=== PATIENT | female | born 1975 | race Hispanic/Latino ===

== ENCOUNTER → 2019-03-11 | Emergency (ER) | payer SELFPAY ==
[~2019-03-11] MED LIST: LORAZEPAM 0.5 MG TABLET ONE
--- OUTSIDE RECORDS SUMMARY | 2019-03-11 23:59 | XMS REPORT ---
:1975 [facility] [place] [address] [place] [address] Care Team Providers Name Role Phone Unavailable Unavailable Unavailable Problems This patient has no known problems. Allergies, Adverse Reactions, Alerts This patient has no known allergies or adverse reactions. Medications This patient has no known medications.
--- OUTSIDE RECORDS SUMMARY | 2019-03-11 23:59 | XMS REPORT | Continuity of Care Document ---
:1975 Author Organization [facility] Address [address] [place] [address] Phone Care Team Providers Name Role Phone Corie Phan Unavailable Unavailable Allergies, Adverse Reactions, Alerts Substance Reaction Status No Known Allergies Active Medications Medication Instructions Dosage Effective Dates Status Comments (start - stop) lisinopril 20 TAKE ONE TABLET BY - Active [Pat Resp=0 mg-hydrochlorothiaz MOUTH DAILY pct;] brandon 25 mg tablet fenofibrate 160 mg take 1 tablet by 160 MG - Active [Pat Resp= 0 tablet oral route every pct;] day atorvastatin 10 mg take 1 tablet by 10 MG - Active [Pat Resp=0 tablet oral route every pct;] day Depakote 500 mg take 3 Tablet by - Active [Pat Resp=0 tablet,delayed oral route once pct;] release every evening quetiapine 100 mg take 1 tablet by 100 MG - Active [Pat Resp=0 tablet oral route every pct;] bedtime Zoloft 100 mg take 1 tablet by 100 MG - Active [Pat Resp=0 tablet oral route every pct;] day atorvastatin 10 mg take 1 tablet by 10 MG - No Longer [Pat Resp=0 tablet oral route every Active pct;] day LISINOPRIL-HCTZ TAKE ONE TABLET BY - No Longer [Pat Resp=0 20-25 MG TAB MOUTH DAILY Active pct;] fenofibrate 160 mg take 1 tablet by 160 MG - No Longer [Pat Resp=0 tablet oral route every Active pct;] day Problems Condition Effective Dates (start - stop) Clinical Status Comments No information Procedures Procedure Date Nominal Fee Established Patient Office Visit-Level Four Results Test Name Date and Time Measure Units Reference Range Abnormal Flag Status Comments No information Advance Directives Directive Yes / No Effective Date File Name No information Encounters Encounter Practice Location Reason(s) Diagnoses Date Provider Providers Description For Visit Copied on Encounter Established [facility] TC depression Zygomatic fracture, Heather Referring Patient Health & [facility] (chief left side, Corie. Provider: Office Wellness, Health & complaint)h sequelaHTNMajor 9 [address] Corie Visit-Level PO Box Wellness yperlipidem depressive disorder, [place] Willard Romero, [address], [place] (chief single episode, [place] [address], complaint)h moderateHyperlipidem [address]way, [place] Sud[place], ypertension iaAlcohol abuse [address], [place] [id number] (chief [facility] complaint)a [facility] [address], tel:[phone] [place] [id number] abuse . [place], [place], (chief tel:[phone]. complaint) [id number] tel:[phone] [facility] TC [facility] & 9 . [address] PO Box Wellness Humph[place] Willard [address], [place] She[place], [place], [place], [address], [id number] [place], tel:[phone] [id number] . tel:[phone] [facility] TC [facility] Referring [facility] & [facility] Provider: ClubLocal, Health & 9 . [address] [facility] PO Box Wellness Humphrey Valadez, [address], [place] [address], [facility], [place] Willard [place], [address], [place] [id number] [facility] , [place], [place], [address], tel:[phone] [place] [id number] . [place], tel:[phone]. [id number] tel:[phone] [facility] Abnormal results of Valadez Referring Health & [facility] liver function [facility] Provider: Wellness, Health & studies 9 . [address] [facility] PO Box Wellness Humph[place] Valadez, [address], [place] [address], ExpHumphrey white [place], [address], [place] [id number] [facility] [address], tel:[phone] [place] [id number] . [place], tel:[phone]. [phone] tel:[phone] [facility] TC Body mass index Valadez Referring Health & [facility] (BMI) 29.0-29.9, 4 Lorena Provider: Wellness, Health & adultAbnormal 9 . [address] [facility] PO Box Wellness results of liver [place] Valadez, [address], [place] function [place] [address], studiesMixed [address], [place], hyperlipidemiaHTN [address], [place] [id number] [place], [place], [address], tel:[phone] [place] [address] . [place], tel:[phone]. [id number] tel:[phone] [facility] TC HTNHyperlipidemiaBod Valadez Referring Health & [facility] y mass index (BMI) 8-201 Lorena Provider: Wellness, Health & 29.0-29.9, 9 . [address] S[facility] PO Box Wellness adultZygomatic [place] Valadez, [address], [place] fracture, left side, [place] [address], sequelaAnxiety [address], [place], depression [address], [place] [id number] [place], [place], [address], tel:[phone] [place] [id number] . [place], tel:[phone]. [phone] tel:[phone] [facility] TC Body mass index Mar-0 Health & [facility] (BMI) 29.0-29.9, 6-201 Wellness, Health & adultHTNUnspecified 9 PO Box Wellness convulsions [address]39, [place], [place], [id number] , tel:+ [phone] [facility] TC Body mass index Feb-2 Health & [facility] (BMI) 29.0-29.9, 1 Wellness, Health & adultEncounter for 9 PO Box Wellness administrative [address], [place], [place], [id number] , tel:+ [phone] [facility] TC Encounter for dental Feb-0 Valdes Referring Health & [facility] exam and cleaning Bang. Provider: Wellness, Health & w/o abnormal 9 [address] Bang PO Box Wellness findings [place] Valdes, [address], [place] [address] Margarita Stat[place] Emmett F [place], [address], [place] [id number] [place], [place], [address], tel:[phone] [place] [id number] . [place], tel:+ [phone]. [phone] tel:[phone] [facility] TC Body mass index Jun- Health & [facility] (BMI) 28.0-28.9, Wellness, Health & adultHTNDepressionAn 9 PO Box Wellness xiety [address], [place], [place], [id number] , tel:[phone] [facility] Gal Encounter for dental Leoncio-0 Valdes Referring Health & [facility] exam and cleaning Bang. Provider: Wellness, Health & w/o abnormal 9 [address] Bang PO Box Wellness findings Humph[place] Valdes, [address], [place] [address] Margarita [place] Emmett F [place], [address], [place] [id number] [place], [place], [address], tel:[phone] [place] [id number] . [place], tel:[phone]. [id number] tel:[phone] [facility] Gal Encounter for dental Dec- Valdes Referring Health & [facility] exam and cleaning Bang. Provider: Wellness, Health & w/o abnormal 8 [address] Bang PO Box Wellness findings Humph[place] Valdes, 9[address], [place] [address] Margarita [place], [place], [address], [place] [id number] [place], [place], [address], tel:[phone] [place] [id number] . [place], tel:+ [phone]. [id number] tel:[phone] [facility] Gal Body mass index Nov-2 Health & [facility] (BMI) 28.0-28.9, 0-201 Wellness, Health & adultZygomatic 8 PO Box Wellness fracture, left side, 939, Nm sequelaGRADY [place], [place], [id number] , tel:[phone] [facility] TC Encounter for dental Sep-2 Health & [facility] exam and cleaning Wellness, Health & w/o abnormal 8 PO Box Wellness findings [address], [place], [place], [id number] , tel:[phone] [facility] TC HTNDepressionBody Sep- Sun Referring Health & [facility] mass index (BMI) Jija. Provider: Wellness, Health & 27.0-27.9, adult 8 [address] Jija PO Box Wellness Humphrey Sun, 939, [facility] [address] [facility], [facility], [address], [place] [id number] [place], [place], [address], tel:+ [phone] [place] [address] . [place], tel:+ [phone]. [phone] tel:[phone] [facility] Gal Unspecified Huey- Health & [facility] convulsionsConjuncti Wellness, Health & vitis 8 PO [address] Wellness [address], [place], [place], [id number] , [place] tel:[phone] [facility] Gal HTNUnspecified October- Health & [facility] convulsionsGeneraliz Wellness, Health & ed anxiety 8 PO Box Wellness disorderDepressionIn 939, Nm irvinradha [place], [place], [id number] , [place] tel:[phone] [facility] TC Encounter for Feb-2 Health & [facility] screening mammogram Wellness, Health & for Ca of 8 PO Box Wellness breastDepressionHTNH 939, [place] yperlipidemiaUnspeci [place], fied convulsions [place], [id number] , [place] tel:[phone] [facility] TC Alcohol use, Feb- Dilma Referring Health & [facility] unspecified with Marcia. Provider: Wellness, Health & alcohol-induced 8 [address] Marcia PO Box Wellness sleep disorderMajor Humph[place] Perera, [address], [place] depressive disorder, [place] [address], single episode, [facility], [place], moderateAcute stress [address], [place] [id number] reactionGeneralized [place] [facility] , [place] anxiety [place], [place], [address], tel:[phone] disorderAdjustment [phone] [place] [id number] disorder with mixed . [place], anxiety and tel:+ [phone]. depressed mood [id number] tel:[phone] [facility] Gal Unspecified Mar-2 Health & [facility] convulsionsEncounter Wellness, Health & for 7 PO Box Wellness screeningDepressionA 939, [place] nxietyHTN [facility] [place], [id number] , [place] tel:+ [phone] [facility] Gal Encounter for Aug-0 Health & [facility] gynecological exam 7- Wellness, Health & 7 PO Box Wellness [address], [place], [place], [id number] , [place] tel:[phone] [facility] TC Unspecified Dec- Vega Referring Health & [facility] convulsions - Juanita. Provider: Wellness, Health & 6 [address] Juanita PO Box Wellness Humph[place] Ferrari, [address], [place] [address], [address], [place], [address], [place] [id number] [place] [facility] , [place], [address], tel:[phone] [place] [id number] . [place], tel:[phone]. [phone] tel:[phone] [facility] Gal HTNHyperlipidemiaUns Dec-0 Vega Referring Health & [facility] pecified 6 Juanita. Provider: Wellness, Health & convulsionsAcute 6 [address] Juanita PO Box Wellness pharyngitisDepressio Humph[place] Ferrari, [address]39, [place] nAnxiety [place] [address] Margarita Staton Emmett F [place], [address], [place] [id number] [place], [place], [address], tel:[phone] [place] [id number] . [place], tel:[phone]. [id number] tel:[phone] [facility] Gal HTNAnemiaHyperlipide Vega Referring Health & [facility] for 8-201 Juanita. Provider: Wellness, Health & immunizationUnspecif 6 [address] Juanita PO Box Wellness ied convulsions Humph[place] Ferrari, [address], [place] [address] [facility], [place], [address], [place] [id number] [place], [place], [address], tel:[phone] [place] [address] . [place], tel:+ [phone]. [id number] tel:[phone] [facility] Gal Unspecified Aug-0 Health & [facility] convulsions 4-201 Wellness, Health & 6 PO Box Wellness [address], [place], [place], [id number] , tel:[phone] [facility] Gal SeizureHTNDepression Jan-0 Health & [facility] Anxiety 3-201 Wellness, Health & 6 PO [address] Wellness [address], [place], [place], [id number] , tel:[phone] Family History Family Member Diagnosis Age At Onset Father Mother Stroke Mother Hypertension Father Hypertension Father Stroke Immunizations Vaccine Date Status Comments influenza, injectable, administered Source: New Immunization Record quadrivalent, (3 years or older) Payers Payer name Insurance type Covered republican ID Authorization(s) No information Social History Type Description Quantity Date Captured Comments Alcohol Use Details beer 6 pk of beer daily Caffeine Use Details No Tobacco Use Status Never smoked tobacco Smoking Status Never smoker Non-Smoking Tobacco : No Details Available : No Details Available 2018 Use Details Sex Female Vital Signs Date / Height Weight BMI Pulse Blood Temperature Respiratory Body Head BMI Pulse Inhaled Time: Rate Pressure Rate Surface Circumference percentile Ox Ox Area 62.00 159.12 29.1 82 108/73 97.8 F 16 /min 97 -2019 in lbs 0 /min mm[Hg] 10:53 kg/m AM eter (2) Chief Complaint And Reason For Visit Most recent encounter only, dated '03/05/2019 10:40'. depression (chief complaint). Description: The patient presents with depressed mood, diminished interest or pleasure and excessive worry but denies anxious/fearful thoughts, difficulty falling asleep, difficulty staying asleep, easily startled, fatigue, hallucinations or thoughts of or suicide. The patient's risk factors include alcoholism. The depression is aggravated by alcohol use. The patient's relieving factors are alcohol and medication (see rx list). The patient denies any nausea, sweating and vomiting. Additional information: keep f/u with [facility] for continued management.hyperlipidemia (chief complaint). Description: Risk factors include obesity, poor diet, sedentary life style and smoking. Pertinent negatives include chest pain, diaphoresis, dyspnea, heartburn , hypoglycemic episodes, nausea and vomiting. Additional information: pt requesting refill of atorvastatin and fenofibrate.hypertension (chief complaint) . Description: The HTN started in 1992. Risk factors include high salt intake , inactive lifestyle and obesity. Pertinent negatives include chest pain, diaphoresis, dyspnea, fatigue, nausea and vomiting. Additional information: pt requesting refill of lisinopril/HCTZalcohol abuse (chief complaint). Description : Pt has been a heavy drinker since age 13. Pt is drinking a 6 pack per day. Pt does have shakes when she doesn't drink. Last intake was this morning.Pt is starting in a rehab facility - residential - on Friday (3 days from now). Pt wants to become sober, but knows she needs help. Reason For Referral Reason For Referral No information Plan Of Treatment Date Type Action Status Goal Lifestyle education regarding diet completed Goal Lifestyle education regarding diet completed Goal Dietary management education, guidance, and completed counseling Goal Dietary management education, guidance, and completed counseling Goal Dietary management education, guidance, and completed counseling Goal Dietary management education, guidance, and completed counseling Goal Dietary management education, guidance, and completed counseling Referral Ordered: ordered Ultrasound (related to Abnormal results of liver function studies) Referral Ordered: ordered Referrals: Ultrasound. Evaluate and treat Referral Ordered: ordered Neurosurgery (related to Zygomatic fracture, left side, sequela) Referral Ordered: ordered Referrals: Neurosurgery. Evaluate and treat Referral Ordered: ordered Referrals: Mammogram-Screening. Diagnostic testing Appointment Sonny Spence BOOKED History Of Present Illness Encounter Date Complaint History Of Present Illness depression The patient presents with depressed mood, diminished interest or pleasure and excessive worry but denies anxious/fearful thoughts, difficulty falling asleep, difficulty staying asleep, easily startled, fatigue, hallucinations or thoughts of or suicide. The patient's risk factors include alcoholism. The depression is aggravated by alcohol use. The patient's relieving factors are alcohol and medication (see rx list). The patient denies any nausea, sweating and vomiting. Additional information: keep f/u with [facility] for continued management. alcohol abuse Pt has been a heavy drinker since age 13. Pt is drinking a 6 pack per day. Pt does have shakes when she doesn't drink. Last intake was this morning.Pt is starting in a rehab facility - residential - on Friday (3 days from now). Pt wants to become sober, but knows she needs help. hypertension The HTN started in 1992. Risk factors include high salt intake, inactive lifestyle and obesity. Pertinent negatives include chest pain, diaphoresis, dyspnea, fatigue, nausea and vomiting. Additional information: pt requesting refill of lisinopril/HCTZ hyperlipidemia Risk factors include obesity, poor diet, sedentary life style and smoking. Pertinent negatives include chest pain, diaphoresis, dyspnea, heartburn, hypoglycemic episodes, nausea and vomiting. Additional information: pt requesting refill of atorvastatin and fenofibrate. Functional Status Date Functional Assessment No information Medications Administered Medication Instructions Dosage Effective Dates (start - stop) Status Comments No information Instructions Date Instruction Additional Information Encouraged pt to complete 30 day Related to Alcohol abuse rehab.Should schedule f/u after to discuss progress and consider [facility] clinic eval. Pt is very interested in this. refill sent as rxlow sodium diet Related to HTN encouraged refilled as rxlow fat diet encouraged Related to Hyperlipidemia keep f/u with [facility], doing well Related to Major depressive disorder, single episode, moderate completed food stamps paperwork and also Related to Zygomatic fracture, note stating unable to workcontinue to left side, sequela work on [facility] application to get into neurosurg Will recheck liver fx test, will also Related to Abnormal results of check hepatitis panelConsider obtaining liver function studies RUQ US if liver enzymes still elevated Will recheck lipid panelAdvise pt that Related to Mixed hyperlipidemia if her TGs are still elevated, will plan to send fenofibrate to [facility] [employer] ($6 w/ membership) - Also discussed risk and consequences of elevated TGs Will increase HCTZ to 25 mg daily, c/w Related to HTN lisinopril 20 mg dailyMonitor BP daily and logF/u in 6 weeks Lifestyle education regarding diet Related to Body mass index ( BMI) 29.0-29.9, adult Giving encouragement to exercise Related to Body mass index (BMI) 29.0-29.9, adult Pt has traumatic injury in 06/16 Related to Zygomatic fracture, Requesting work excuse until she sees left side, sequela neurosurgeryWill renew referral Refilled BP medsWill get labsF/u in 3 Related to HTN months Refilled atorvastatinWill get labs Related to Hyperlipidemia Following up w/ [facility] Related to Anxiety depression Lifestyle education regarding diet Related to Body mass index ( BMI) 29.0-29.9, adult Giving encouragement to exercise Related to Body mass index (BMI) 29.0-29.9, adult controlledcontinue depakote Related to Unspecified convulsions continue medpt informed to get her Related to HTN records from medical records Dietary management education, guidance, Related to Body mass index (BMI) and counseling 29.0-29.9, adult pt informed to see medical records Related to Encounter for administrative examination Dietary management education, guidance, Related to Body mass index (BMI) and counseling 29.0-29.9, adult managed by [facility] meds as Related to Depression prescribedpt will call with the name of the medications.records requested decrease lisinopril/hctzmonitor bp at Related to HTN homediet and exercise Dietary management education, guidance, Related to Body mass index (BMI) and counseling 28.0-28.9, adult schedule with neurosurgeonawaiting Related to Zygomatic fracture, [facility] application decision left side, sequela continue med Related to HTN Dietary management education, guidance, Related to Body mass index (BMI) and counseling 28.0-28.9, adult pt to bring the medication bottles / Related to Depression list of medication which was prescribed by [facility] ' follow up as needed , schedule with [facility] periodically crisis intervention reinforced pt to address the clearance with Related to HTN neurology ( increased tooth sensitivity) release the medical records from neurology aspirin daily follow up in a month with discharge home medication and BP lof follow up in 4-6 weeks with BP log Dietary management education, guidance, Related to Body mass index (BMI) and counseling 27.0-27.9, adult erythromycin prescribedavoid Related to Conjunctivitis triggerssafety and er precautions lab updated Related to Unspecified convulsions pt has not been taking trazodone due to Related to [facility] trazodone sent Related to Insomnia pt has not been taking dilantin due to Related to Unspecified [facility] convulsions [facility] as prescribed continue med Related to Generalized anxiety disorder controlledcontinue med Related to HTN controlledmed refilledmonitor bp at home Related to HTN and keep log continue med Related to Hyperlipidemia stated meds last taken x3mths Related to Unspecified agodilantin refilled convulsions continue med - refilled Related to Depression hctz prescribedcontinue lisinoprildiet Related to HTN and exercise tb skin test for school today Related to Encounter for screening increase buspironerest and Related to Anxiety relationschedule with counselor trazodone and citalopram Related to Depression refilledtrazodone sent to [facility] [employer] for discounttake meds as prescribedschedule with counselor continue dilatin check level Related to Unspecified convulsions well woman exam todayschedule for well Related to Encounter for woman gynecological exam Rapid Strep- negative Advised salt water Related to Acute pharyngitis gargles and OTC Tylenol prn for pain Increased Citalopram Refilled Trazodone Related to Depression Advised pt to schedule appointment with counselor Pt denies SI at this time See comments in provider details and confidential histories Add buspirone 5mg 1 tab po tid prn for Related to Anxiety anxiety Recommend counseling Refileld Rx as prescribed Fasting Related to HTN labwork scheduled Stable Refilled Dilantin Related to Unspecified convulsions fasting lipid panel scheduled Refilled Related to Hyperlipidemia atorvastatin Flu vaccine administered Related to Encounter for immunization Stable; last seizure 3 years ago Pt Related to Unspecified reports she has been cleared to drive convulsions Anemia profile scheduled Pt was Related to Anemia instructed to schedule a WWE D/c gemfibrozil due to [facility] for Related to Hyperlipidemia atorvastatin 10 mg 1 tab po qHSFasting lipid panel scheduled Stable refills sent this AM by Provider Related to HTN BorilloLow sodium diet C/w current Assessments Type Assessment Date assessment Zygomatic fracture, left side, sequela assessment HTN assessment Major depressive disorder, single episode, moderate assessment Hyperlipidemia assessment Alcohol abuse Goals Health Concern Goal Type Priority Status Date No information Medical Equipment Description Device [place] Device Identifier Effective Dates (start - stop ) Status No information Mental Status Date Cognitive Assessment Orientation - Oriented to time, place, person, situation. Health Concerns Observation Date No information Concern Status Date No information
== END ==
LOC: ER 23:56
DX: R45.851 Suicidal ideations (principal); F33.9 Major depressive disorder, recurrent, unspecified
CPT/HCPCS: 36415; 80048; 80076; 80307; 80320; 80329; 81003; 81025; 85025; 85610; 85730; 93005; 99285

== ENCOUNTER 2019-04-07 16:09 | Emergency (ER) | payer SELFPAY ==
[2019-04-07 17:11] LABS: Absolute Lymphocytes (CBC) 1.4 K/uL (0.7-4.9); Basophils % 0.4 % (0-1.3); Hematocrit 26.3 % (36.0-45.0); Lymphocytes % 33.5 % (15.3-44.8); RBC Red Blood Cell Count 2.95 M/uL (3.86-4.86)
[2019-04-07 17:12] LABS: Barbiturates NEGATIVE (NEGATIVE); Benzodiazepines NEGATIVE (NEGATIVE); Cocaine NEGATIVE (NEGATIVE); METHAMPHETAM NEGATIVE (NEGATIVE); Methadone NEGATIVE (NEGATIVE); Opiates NEGATIVE (NEGATIVE); Phencyclidine NEGATIVE (NEGATIVE); THC Cannibis NEGATIVE (NEGATIVE)
[2019-04-07 17:22] LABS: Urine Blood 1+ (NEG); Urine Glucose NEGATIVE (NEG); Urine Protein NEGATIVE (NEG); Urine Specific Gravity 1.015 (1.005-1.030)
[2019-04-07 17:34] LABS: ALT/SGPT 26 U/L (12-78); AST/SGOT 17 U/L (15-37); Alkaline Phosphatase 43 U/L (45-117); BUN Blood Urea Nitrogen 12 mg/dL (7-18); Bicarbonate 26 mmol/L (21-32); Bilirubin Direct < 0.1 mg/dL (0-0.2); Bilirubin Total 0.2 mg/dL (0.2-1.0); Glucose Level 84 mg/dL (74-106); Potassium 3.8 mmol/L (3.5-5.1); Protein, Total 7.5 g/dL (6.4-8.2); Sodium Level 126 mmol/L (136-145)
[2019-04-07 17:36] LABS: Protime INR 1.09
[2019-04-07] MEDS ORDERED: NA CHLORIDE 0.9% 1,000 ML ONE (18:15)
--- NOTE | 2019-04-07 18:25 | EKG ---
Test Date: 2019-04-07 Test Time: 16:31:05 Painter Foreman: STEPHANIE MEASUREMENT RESULTS: Intervals: Rate: 77 FL: 144 QRSD: 80 QT: 384 QTc: 434 [place]: P: 40 FL: 144 QRS: 60 T: 38 INTERPRETIVE STATEMENTS: Normal sinus rhythm Normal ECG Compared to ECG 03/11/2019 22:09:31 No significant changes Electronically Signed On 04-07-19 18:24:08 CDT by Michael Jamil
[2019-04-08] MEDS ORDERED: ACETAMINOPHEN 500 MG TAB ONE (04:24)
[2019-04-08] MEDS ORDERED: DIVALPROEX DR 250 MG TAB PO ONE (11:00)
[2019-04-08] MEDS ORDERED: hydrOXYzine HCl 25 MG TAB ONE ×2 (11:00→17:37)
[2019-04-08] MEDS ORDERED: QUETIAPINE 100MG TAB PO ONE (11:15)
[2019-04-08] MEDS ORDERED: SERTRALINE HCL 100 MG TAB PO ONE (11:15)
--- NOTE | 2019-04-08 17:11 | ER ---
Nurse's Notes [facility] Name: Sonny Spence Age: 43 yrs Sex: Female : 1975 Arrival Date: 04/07/2019 Time: 16:18 Bed 16 Private MD: Diagnosis: Suicide attempt Presentation: 04/07 16:21 Presenting complaint: EMS states: Toned out to [facility] due to SI, pt was going to [facility] try to slice her neck with tweezers and a nail clipper. Transition of care: patient was received from another setting of care (rehabilitation facility). Onset of symptoms was April 07, 2019. Risk Assessment: Do you want to hurt yourself or someone else? Patient reports desire/thoughts of hurting themselves or someone else. Provider notified. Initial Sepsis Screen: Does the patient meet any 2 criteria? No. Patient's initial sepsis screen is negative. Does the patient have a suspected source of infection? No. Patient's initial sepsis screen is negative. Care prior to arrival: None. 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 - Social history:: Smoking status: Patient/guardian denies using tobacco, Patient uses ETOH and marijuana last used 03/08/19. - Ebola Screening: : No symptoms or risks identified at this time. Screenin:00 Abuse screen: Denies threats or abuse. Denies injuries from another. Nutritional jl7 screening: No deficits noted. Tuberculosis screening: No symptoms or risk factors identified. Fall Risk IV access (20 points). Total Cruz Fall Scale indicates No Risk (0-24 pts). Assessment: 16:20 General: Appears in no apparent distress. uncomfortable, Behavior is calm, flat, quiet. jl7 Pain: Denies pain. Neuro: Level of Consciousness is awake, alert, obeys commands, Oriented to person, place, time, situation. Cardiovascular: Patient's skin is warm and dry. Respiratory: Airway is patent Respiratory effort is even, unlabored, Respiratory pattern is regular, symmetrical. GI: No signs and/or symptoms were reported involving the gastrointestinal system. : No signs and/or symptoms were reported regarding the genitourinary system. EENT: No signs and/or symptoms were reported regarding the EENT system. Derm: Skin is pink, warm \\T\\ dry. Musculoskeletal: No signs and/or symptoms reported regarding the musculoskeletal system. 17:30 Reassessment: Patient appears in no apparent distress at this time. No changes from jl7 previously documented assessment. Patient and/or family updated on plan of care and expected duration. Pain level reassessed. Patient is alert, oriented x 3, equal unlabored respirations, skin warm/dry/pink. 18:30 Reassessment: Patient appears in no apparent distress at this time. No changes from jl7 previously documented assessment. Patient and/or family updated on plan of care and expected duration. Pain level reassessed. Patient is alert, oriented x 3, equal unlabored respirations, skin warm/dry/pink. 19:15 Reassessment: Patient appears in no apparent distress at this time. Patient and/or aa1 family updated on plan of care and expected duration. Pain level reassessed. Patient is alert, oriented x 3, equal unlabored respirations, skin warm/dry/pink. Patient denies pain at this time. 20:06 Reassessment: Patient appears in no apparent distress at this time. Patient and/or aa1 family updated on plan of care and expected duration. Pain level reassessed. Patient is alert, oriented x 3, equal unlabored respirations, skin warm/dry/pink. [place] [employer] sales representative present at bedside. 21:00 Reassessment: Patient appears in no apparent distress at this time. Patient and/or aa1 family updated on plan of care and expected duration. Pain level reassessed. Patient is alert, oriented x 3, equal unlabored respirations, skin warm/dry/pink. Awaiting psych transfer. 22:00 Reassessment: Patient appears in no apparent distress at this time. Patient and/or aa1 family updated on plan of care and expected duration. Pain level reassessed. Patient is alert, oriented x 3, equal unlabored respirations, skin warm/dry/pink. Awaiting psych transfer. 23:00 Reassessment: Patient appears in no apparent distress at this time. Patient and/or aa1 family updated on plan of care and expected duration. Pain level reassessed. Patient is alert, oriented x 3, equal unlabored respirations, skin warm/dry/pink. Awaiting psych transfer. 04/08 00:00 Reassessment: Patient appears in no apparent distress at this time. Patient and/or aa1 family updated on plan of care and expected duration. Pain level reassessed. Patient is alert, oriented x 3, equal unlabored respirations, skin warm/dry/pink. Awaiting psych transfer. 01:00 Reassessment: Patient appears in no apparent distress at this time. Patient and/or aa1 family updated on plan of care and expected duration. Pain level reassessed. Patient is alert, oriented x 3, equal unlabored respirations, skin warm/dry/pink. Awaiting psych transfer. 02:00 Reassessment: Patient appears in no apparent distress at this time. Patient and/or aa1 family updated on plan of care and expected duration. Pain level reassessed. Patient is alert, oriented x 3, equal unlabored respirations, skin warm/dry/pink. Awaiting psych transfer. 03:00 Reassessment: Patient appears in no apparent distress at this time. Patient and/or aa1 family updated on plan of care and expected duration. Pain level reassessed. Patient is alert, oriented x 3, equal unlabored respirations, skin warm/dry/pink. Awaiting psych transfer. 04:00 Reassessment: Patient appears in no apparent distress at this time. Patient and/or aa1 family updated on plan of care and expected duration. Pain level reassessed. Patient is alert, oriented x 3, equal unlabored respirations, skin warm/dry/pink. Awaiting psych transfer. 04:25 Reassessment: Patient appears in no apparent distress at this time. Patient and/or aa1 family updated on plan of care and expected duration. Pain level reassessed. Patient is alert, oriented x 3, equal unlabored respirations, skin warm/dry/pink. Requesting medication for headache. Awaiting psych transfer. 05:30 Reassessment: Patient appears in no apparent distress at this time. Patient and/or aa1 family updated on plan of care and expected duration. Pain level reassessed. Patient is alert, oriented x 3, equal unlabored respirations, skin warm/dry/pink. Awaiting psych transfer. 06:30 Reassessment: Patient appears in no apparent distress at this time. Patient and/or aa1 family updated on plan of care and expected duration. Pain level reassessed. Patient is alert, oriented x 3, equal unlabored respirations, skin warm/dry/pink. Awaiting psych transfer. 07:05 General: Appears uncomfortable, Behavior is agitated. Pain: Complains of pain in rb1 headache Pain currently is 8 out of 10 on a pain scale. Pain began 1 day ago. Neuro: Level of Consciousness is awake, alert, obeys commands, Oriented to person, place, time, situation. Cardiovascular: Capillary refill < 3 seconds is brisk in bilateral fingers. Respiratory: Airway is patent Respiratory effort is even, unlabored, Respiratory pattern is regular, symmetrical. Derm: Skin is pink, warm \\T\\ dry. 08:05 Reassessment: No changes from previously documented assessment. Patient and/or family rb1 updated on plan of care and expected duration. Pain level reassessed. Patient is alert, oriented x 3, equal unlabored respirations, skin warm/dry/pink. Awaiting psych transfer. 09:00 Reassessment: Patient appears in no apparent distress at this time. Patient and/or rb1 family updated on plan of care and expected duration. Pain level reassessed. Patient is alert, oriented x 3, equal unlabored respirations, skin warm/dry/pink. 10:00 Reassessment: Patient appears in no apparent distress at this time. No changes from rb1 previously documented assessment. 10:17 Reassessment: Pt. c/o feeling anxious; provider notified. No new orders received at [facility] this time. 11:00 Reassessment: Patient appears in no apparent distress at this time. Patient and/or rb1 family updated on plan of care and expected duration. Pain level reassessed. Patient is alert, oriented x 3, equal unlabored respirations, skin warm/dry/pink. 12:00 Reassessment: Patient appears in no apparent distress at this time. Patient and/or rb1 family updated on plan of care and expected duration. Pain level reassessed. Patient is alert, oriented x 3, equal unlabored respirations, skin warm/dry/pink. Sitter remains at bedside. 13:00 Reassessment: Patient appears in no apparent distress at this time. No changes from rb1 previously documented assessment. Pt. is watching TV. 14:00 Reassessment: Patient appears in no apparent distress at this time. Patient and/or rb1 family updated on plan of care and expected duration. Pain level reassessed. Patient is alert, oriented x 3, equal unlabored respirations, skin warm/dry/pink. 15:00 Reassessment: Patient appears in no apparent distress at this time. No changes from rb1 previously documented assessment. Pt. is watching TV. Sitter remains at bedside. 16:00 Reassessment: Patient appears in no apparent distress at this time. Patient and/or rb1 family updated on plan of care and expected duration. Pain level reassessed. Patient is alert, oriented x 3, equal unlabored respirations, skin warm/dry/pink. 16:15 Reassessment: Gave Nurse to Nurse report to TOAN Machuca at [facility]. Information rb1 from the SB[facility] was given. All questions asked and answered. Received information for the Doctor to Doctor reports. For [place] Physician call [phone], for the ER Physician call [phone]. And then call intake and ask for Jesus Alberto at [phone]. Informed Susy/Ly, Coat Finisher of the information, reminded them to get the physicians names and times that they spoke to each doctor before calling Jesus Alberto back. 17:00 Reassessment: Patient appears in no apparent distress at this time. Patient and/or rb1 family updated on plan of care and expected duration. Pain level reassessed. Patient is alert, oriented x 3, equal unlabored respirations, skin warm/dry/pink. 17:59 Reassessment: Gave report to [facility], Information from the SB[facility] was given, all rb1 questions asked and answered. 18:00 Reassessment: Patient appears in no apparent distress at this time. No changes from rb1 previously documented assessment. Psych: 04/07 16:30 Subjective: Patient's mood is sad, hopeless, Delusions are denied, Hallucinations are jl7 denied Having thoughts of suicide. Plan for suicide is Pt reports "I was going to use the nail clippers and tweezers and get my neck vein. I also had a backup plan but they found that too. It was a razor I had hidden way up.". Objective: Patient is cooperative, using poor eye contact, Speech is normal, Affect is flat. Interventions: Removed personal items and placed in bag. Patient placed in hospital gown. Searched person for dangerous items. Urine collected and sent for urine drug test. Suicide Risk Assessment: Sad Person Scale: Sex of patient: Female: Score 0 points. Age of patient: Score 0 point if patient falls outside of specified age parameters. Depression: Score 1 point if signs of depression are present. Previous Attempt: Score 1 point if patient has previously attempted suicide. Substance Abuse: Score 1 point if patient abuses alcohol or drugs. Rational Thinking: Score 1 point if patient is lacking rational thinking. Social Support: Score 1 point if social support is lacking and/or unavailable. Organized Plan: Score 1 point if patient had a plan in place. Relationship: Score 1 point if patient is , , , or for a single male Chronic Sickness: Score 0 point if patient does not have a chronic illness, debilitating, or severe disorder. TOTAL POINTS: If total points are 7-10, the proposed clinical action is to hospitalize or commit. Implement suicide precautions. Safety Checks: Personal items have been removed. Door is open. No visitors are present at this time. Sitter at bedside. Patient uses daily. Last use was 1 months ago. Patient uses marijuana daily Last use was 1 months ago. Vital Signs: 16:28 BP 108 / 80; Pulse 79; Resp 16 S; Temp 98.5(O); Pulse Ox 99% on R/A; Pain 0/10; jl7 21:42 BP 113 / 69; Pulse 71; Resp 17; Temp 98.5; Pulse Ox 97% ; Pain 0/10; cm6 10/10 02:28 BP 92 / 62; Pulse 70; Resp 17; Temp 98.1; Pulse Ox 98% ; Pain 0/10; cm6 03:22 BP 109 / 63; Pulse 82; Resp 18; Temp 98.4; Pulse Ox 98% on R/A; Pain 0/10; aa1 07:11 BP 93 / 59; Pulse 64; Resp 16; Temp 98.1; Pulse Ox 100% ; mh5 09:53 BP 99 / 65; Pulse 72; Resp 17; Pulse Ox 98% on R/A; rb1 09:53 BP 99 / 65; Pulse 80; Resp 16; Pulse Ox 100% on R/A; mh5 10:15 BP 104 / 62; Pulse 78; Resp 18; Pulse Ox 100% on R/A; kj1 13:40 BP 99 / 68; Pulse 80; Resp 15; Temp 97.9(O); Pulse Ox 99% on R/A; mh5 15:55 BP 106 / 60; Pulse 71; Resp 16; Temp 98.4(O); Pulse Ox 100% on R/A; mh5 18:03 BP 117 / 71; Pulse 76; Resp 16; Temp 98.6(O); Pulse Ox 98% on R/A; mh5 ED Course: 04/07 16:15 Safety checks: Items removed: yes. Door open/sign placed on door: yes. Family/friend dh3 present: no. Sitter present: Yes. 16:18 Patient arrived in ED. am2 16:20 [facility]C [facility] kb 16:20 Fernando Woodall MD is Attending Physician. kb 16:20 Glen Titus RN is Primary Nurse. jl7 16:20 Patient has correct armband on for positive identification. Fall risk band placed. jl7 Placed in gown. Bed in low position. Call light in reach. Side rails up X 1. 16:27 Triage completed. jl7 16:28 Arm band placed on right wrist. jl7 16:30 Safety checks: Items removed: yes. Door open/sign placed on door: yes. Family/friend dh3 present: no. Sitter present: Yes. 16:30 Missed attempt(s): 22 gauge in right forearm. Bleeding controlled, band aid applied, dh3 catheter tip intact. 16:35 Missed attempt(s): 22 gauge in right hand. Bleeding controlled, band aid applied, dh3 catheter tip intact. 16:40 Initial lab(s) drawn, by in, sent to lab. Inserted saline lock: 20 gauge in left dh3 antecubital area, using aseptic technique. Blood collected. 16:45 Safety checks: Items removed: yes. Door open/sign placed on door: yes. Family/friend dh3 present: no. Sitter present: Yes. 16:48 Urine collected: clean catch specimen, clear. dh3 17:00 Safety checks: Items removed: yes. Door open/sign placed on door: yes. Family/friend dh3 present: no. Sitter present: Yes. 17:05 EKG done, by technology solutions architect. reviewed by Fernando Woodall MD. 3 17:15 Safety checks: Items removed: yes. Door open/sign placed on door: yes. Family/friend dh3 present: no. Sitter present: Yes. 17:30 Safety checks: Items removed: yes. Door open/sign placed on door: yes. Family/friend dh3 present: no. Sitter present: Yes. 17:45 Safety checks: Items removed: yes. Door open/sign placed on door: yes. Family/friend dh3 present: no. Sitter present: Yes. 18:00 Safety checks: Items removed: yes. Door open/sign placed on door: yes. Family/friend dh3 present: no. Sitter present: Yes. 18:15 Safety checks: Items removed: yes. Door open/sign placed on door: yes. Family/friend dh3 present: no. Sitter present: Yes. 18:20 called [facility] at 1816 and spoke with deep . Asked screener to come see the patient. 18:30 Safety checks: Items removed: yes. Door open/sign placed on door: yes. Family/friend dh3 present: no. Sitter present: Yes. 18:38 ashwin from [facility] called and said her ETA was about \\T\\1999. 18:45 Safety checks: Items removed: yes. Door open/sign placed on door: yes. Family/friend dh3 present: no. Sitter present: Yes. 19:00 Safety checks: Items removed: yes. Door open/sign placed on door: yes. Family/friend dh3 present: no. Sitter present: Yes. 19:15 Safety checks: Items removed: yes. Door open/sign placed on door: yes. Family/friend cm6 present: no. Sitter present: Yes. 19:30 Safety checks: Items removed: yes. Door open/sign placed on door: yes. Family/friend cm6 present: no. Sitter present: Yes. 19:45 Safety checks: Items removed: yes. Door open/sign placed on door: yes. Family/friend cm6 present: no. Sitter present: Yes. 20:00 Safety checks: Items removed: yes. Door open/sign placed on door: yes. Family/friend cm6 present: no. Sitter present: Yes. 20:15 Safety checks: Items removed: yes. Door open/sign placed on door: yes. Family/friend cm6 present: no. Sitter present: Yes. 20:30 Safety checks: Items removed: yes. Door open/sign placed on door: yes. Family/friend cm6 present: no. Sitter present: Yes. 20:45 Safety checks: Items removed: yes. Door open/sign placed on door: yes. Family/friend cm6 present: no. Sitter present: Yes. 21:00 Safety checks: Items removed: yes. Door open/sign placed on door: yes. Family/friend cm6 present: no. Sitter present: Yes. 21:15 Safety checks: Items removed: yes. Door open/sign placed on door: yes. Family/friend cm6 present: no. Sitter present: Yes. 21:30 Safety checks: Items removed: yes. Door open/sign placed on door: yes. Family/friend oe present: no. Sitter present: Yes. 21:45 Safety checks: Items removed: yes. Door open/sign placed on door: yes. Family/friend oe present: no. Sitter present: Yes. 22:00 Safety checks: Items removed: yes. Door open/sign placed on door: yes. Family/friend oe present: no. Sitter present: Yes. 22:15 Safety checks: Items removed: yes. Door open/sign placed on door: yes. Family/friend oe present: no. Sitter present: Yes. 22:30 Safety checks: Items removed: yes. Door open/sign placed on door: yes. Family/friend oe present: no. Sitter present: Yes. 22:45 Safety checks: Items removed: yes. Door open/sign placed on door: yes. Family/friend cm6 present: no. Sitter present: Yes. 23:00 Safety checks: Items removed: yes. Door open/sign placed on door: yes. Family/friend cm6 present: no. Sitter present: Yes. 23:15 Safety checks: Items removed: yes. Door open/sign placed on door: yes. Family/friend cm6 present: no. Sitter present: Yes. 23:30 Safety checks: Items removed: yes. Door open/sign placed on door: yes. Family/friend cm6 present: no. Sitter present: Yes. 23:45 Safety checks: Items removed: yes. Door open/sign placed on door: yes. Family/friend cm6 present: no. Sitter present: Yes. 04/08 00:00 Safety checks: Items removed: yes. Door open/sign placed on door: yes. Family/friend cm6 present: no. Sitter present: Yes. 00:15 Safety checks: Items removed: yes. Door open/sign placed on door: yes. Family/friend cm6 present: no. Sitter present: Yes. 00:30 Safety checks: Items removed: yes. Door open/sign placed on door: yes. Family/friend cm6 present: no. Sitter present: Yes. 00:45 Safety checks: Items removed: yes. Door open/sign placed on door: yes. Family/friend cm6 present: no. Sitter present: Yes. 01:00 Safety checks: Items removed: yes. Door open/sign placed on door: yes. Family/friend cm6 present: no. Sitter present: Yes. 01:15 Safety checks: Items removed: yes. Door open/sign placed on door: yes. Family/friend cm6 present: no. Sitter present: Yes. 01:30 Safety checks: Items removed: yes. Door open/sign placed on door: yes. Family/friend cm6 present: no. Sitter present: Yes. 01:45 Safety checks: Items removed: yes. Door open/sign placed on door: yes. Family/friend cm6 present: no. Sitter present: Yes. 02:00 Safety checks: Items removed: yes. Door open/sign placed on door: yes. Family/friend cm6 present: no. Sitter present: Yes. 02:15 Safety checks: Items removed: yes. Door open/sign placed on door: yes. Family/friend cm6 present: no. Sitter present: Yes. 02:30 Safety checks: Items removed: yes. Door open/sign placed on door: yes. Family/friend cm6 present: no. Sitter present: Yes. 02:45 Safety checks: Items removed: yes. Door open/sign placed on door: yes. Family/friend cm6 present: no. Sitter present: Yes. 03:00 Safety checks: Items removed: yes. Door open/sign placed on door: yes. Family/friend cm6 present: no. Sitter present: Yes. 03:15 Safety checks: Items removed: yes. Door open/sign placed on door: yes. Family/friend cm6 present: no. Sitter present: Yes. 03:30 Safety checks: Items removed: yes. Door open/sign placed on door: yes. Family/friend cm6 present: no. Sitter present: Yes. 03:45 Safety checks: Items removed: yes. Door open/sign placed on door: yes. Family/friend cm6 present: no. Sitter present: Yes. 04:00 Safety checks: Items removed: yes. Door open/sign placed on door: yes. Family/friend cm6 present: no. Sitter present: Yes. 04:15 Safety checks: Items removed: yes. Door open/sign placed on door: yes. Family/friend cm6 present: no. Sitter present: Yes. 04:30 Safety checks: Items removed: yes. Door open/sign placed on door: yes. Family/friend cm6 present: no. Sitter present: Yes. 04:45 Safety checks: Items removed: yes. Door open/sign placed on door: yes. Family/friend cm6 present: no. Sitter present: Yes. 05:00 Safety checks: Items removed: yes. Door open/sign placed on door: yes. Family/friend cm6 present: no. Sitter present: Yes. 05:15 Safety checks: Items removed: yes. Door open/sign placed on door: yes. Family/friend cm6 present: no. Sitter present: Yes. 05:30 Safety checks: Items removed: yes. Door open/sign placed on door: yes. Family/friend cm6 present: no. Sitter present: Yes. 05:45 Safety checks: Items removed: yes. Door open/sign placed on door: yes. Family/friend cm6 present: no. Sitter present: Yes. 06:00 Safety checks: Items removed: yes. Door open/sign placed on door: yes. Family/friend cm6 present: no. Sitter present: Yes. 06:15 Safety checks: Items removed: yes. Door open/sign placed on door: yes. Family/friend cm6 present: no. Sitter present: Yes. 06:30 Safety checks: Items removed: yes. Door open/sign placed on door: yes. Family/friend cm6 present: no. Sitter present: Yes. 06:45 Safety checks: Items removed: yes. Door open/sign placed on door: yes. Family/friend cm6 present: no. Sitter present: Yes. 07:00 Safety checks: Items removed: yes. Door open/sign placed on door: yes. Family/friend mh5 present: no. Sitter present: Yes. 07:10 Primary Nurse role handed off by Glen Titus RN 07:15 Safety checks: Items removed: yes. Door open/sign placed on door: yes. Family/friend mh5 present: no. Sitter present: Yes. 07:20 Kenji Lynn RN is Primary Nurse. [facility] 07:30 Safety checks: Items removed: yes. Door open/sign placed on door: yes. Family/friend mh5 present: no. Sitter present: Yes. 07:45 Safety checks: Items removed: yes. Door open/sign placed on door: yes. Family/friend mh5 present: no. Sitter present: Yes. 08:00 Safety checks: Items removed: yes. Door open/sign placed on door: yes. Family/friend mh5 present: no. Sitter present: Yes. 08:00 Diet: Patient given a regular meal tray. mh5 08:15 Safety checks: Items removed: yes. Door open/sign placed on door: yes. Family/friend mh5 present: no. Sitter present: Yes. 08:30 Safety checks: Items removed: yes. Door open/sign placed on door: yes. Family/friend mh5 present: no. Sitter present: Yes. 08:45 Safety checks: Items removed: yes. Door open/sign placed on door: yes. Family/friend mh5 present: no. Sitter present: Yes. 09:00 Safety checks: Items removed: yes. Door open/sign placed on door: yes. Family/friend mh5 present: no. Sitter present: Yes. 09:15 Safety checks: Items removed: yes. Door open/sign placed on door: yes. Family/friend mh5 present: no. Sitter present: Yes. 09:30 Safety checks: Items removed: yes. Door open/sign placed on door: yes. Family/friend mh5 present: no. Sitter present: Yes. 09:45 Safety checks: Items removed: yes. Door open/sign placed on door: yes. Family/friend mh5 present: no. Sitter present: Yes. 10:00 Safety checks: Items removed: yes. Door open/sign placed on door: yes. Family/friend kj1 present: no. Sitter present: Yes. 10:15 Safety checks: Items removed: yes. Door open/sign placed on door: yes. Family/friend kj1 present: no. Sitter present: Yes. 10:30 Safety checks: Items removed: yes. Door open/sign placed on door: yes. Family/friend kj1 present: no. Sitter present: Yes. :45 Safety checks: Items removed: yes. Door open/sign placed on door: yes. Family/friend mh5 present: no. Sitter present: Yes. 11:00 Safety checks: Items removed: yes. Door open/sign placed on door: yes. Family/friend mh5 present: no. Sitter present: Yes. 11:15 Safety checks: Items removed: yes. Door open/sign placed on door: yes. Family/friend mh5 present: no. Sitter present: Yes. 11:19 Depakote Sent. mh5 11:19 Initial lab(s) drawn, by me, sent to lab. mh5 11:21 Flushed left antecubital saline lock with 5 ml normal saline. mh5 11:30 Safety checks: Items removed: yes. Door open/sign placed on door: yes. Family/friend mh5 present: no. Sitter present: Yes. 11:45 Safety checks: Items removed: yes. Door open/sign placed on door: yes. Family/friend mh5 present: no. Sitter present: Yes. 12:00 Safety checks: Items removed: yes. Door open/sign placed on door: yes. Family/friend mh5 present: no. Sitter present: Yes. 12:15 Safety checks: Items removed: yes. Door open/sign placed on door: yes. Family/friend mh5 present: no. Sitter present: Yes. 12:30 Safety checks: Items removed: yes. Door open/sign placed on door: yes. Family/friend mh5 present: no. Sitter present: Yes. 12:30 Diet: Patient given a regular meal tray. mh5 12:45 Safety checks: Items removed: yes. Door open/sign placed on door: yes. Family/friend mh5 present: no. Sitter present: Yes. 13:00 Safety checks: Items removed: yes. Door open/sign placed on door: yes. Family/friend mh5 present: no. Sitter present: Yes. 13:15 Safety checks: Items removed: yes. Door open/sign placed on door: yes. Family/friend mh5 present: no. Sitter present: Yes. 13:30 Safety checks: Items removed: yes. Door open/sign placed on door: yes. Family/friend mh5 present: no. Sitter present: Yes. 13:45 Safety checks: Items removed: yes. Door open/sign placed on door: yes. Family/friend mh5 present: no. Sitter present: Yes. 14:00 Safety checks: Items removed: yes. Door open/sign placed on door: yes. Family/friend mh5 present: no. Sitter present: Yes. 14:15 Safety checks: Items removed: yes. Door open/sign placed on door: yes. Family/friend mh5 present: no. Sitter present: Yes. 14:30 Safety checks: Items removed: yes. Door open/sign placed on door: yes. Family/friend kj1 present: no. Sitter present: Yes. 14:34 called [facility] and they said they would return our call. nurse is reviewing patients gm chart. 14:45 Safety checks: Items removed: yes. Door open/sign placed on door: yes. Family/friend kj1 present: no. Sitter present: Yes. 14:51 jesus alberto from [facility] called to do nurse to nurse with kenji lynn\\T\\[id number]. gm 15:00 Safety checks: Items removed: yes. Door open/sign placed on door: yes. Family/friend mh5 present: no. Sitter present: Yes. 15:15 Safety checks: Items removed: yes. Door open/sign placed on door: yes. Family/friend mh5 present: no. Sitter present: Yes. 15:30 Safety checks: Items removed: yes. Door open/sign placed on door: yes. Family/friend mh5 present: no. Sitter present: Yes. 15:45 Safety checks: Items removed: yes. Door open/sign placed on door: yes. Family/friend mh5 present: no. Sitter present: Yes. 16:00 Safety checks: Items removed: yes. Door open/sign placed on door: yes. Family/friend mh5 present: no. Sitter present: Yes. 16:15 Safety checks: Items removed: yes. Door open/sign placed on door: yes. Family/friend mh5 present: no. Sitter present: Yes. 16:16 faxed new sodium results to [facility] [phone]. 16:30 Safety checks: Items removed: yes. Door open/sign placed on door: yes. Family/friend mh5 present: no. Sitter present: Yes. 16:45 Safety checks: Items removed: yes. Door open/sign placed on door: yes. Family/friend mh5 present: no. Sitter present: Yes. 17:00 Safety checks: Items removed: Door open/sign placed on door: yes. Family/friend mh5 present: no. Sitter present: Yes. 17:15 Safety checks: Items removed: yes. Door open/sign placed on door: yes. Family/friend mh5 present: no. Sitter present: Yes. 17:30 Safety checks: Items removed: yes. Door open/sign placed on door: yes. Family/friend mh5 present: no. Sitter present: Yes. 17:45 Safety checks: Items removed: yes. Door open/sign placed on door: yes. Family/friend mh5 present: no. Sitter present: Yes. Safety checks: Items removed: Other: EMS HERE FOR PATIENT . 18:11 No provider procedures requiring assistance completed. Patient transferred, IV remains rb1 in place. Administered Medications: 04/07 18:27 Drug: NS 0.9% 1000 ml Route: IV; Rate: 1000 ml; Site: left antecubital; jl7 04/08 04:27 Drug: Tylenol 1000 mg Route: PO; fc 11:00 Drug: hydrOXYzine 25 mg Route: PO; rb1 11:30 Follow up: Response: No adverse reaction; Marked relief of symptoms rb1 11:00 Drug: Depakote 500 mg Route: PO; rb1 11:30 Follow up: Response: No adverse reaction; Marked relief of symptoms rb1 11:27 Drug: Zoloft 100 mg Route: PO; rb1 12:00 Follow up: Response: No adverse reaction; Marked relief of symptoms rb1 11:28 Drug: SEROquel 200 mg Route: PO; rb1 12:00 Follow up: Response: No adverse reaction; Marked relief of symptoms rb1 16:50 Drug: hydrOXYzine 50 mg Route: PO; rb1 17:20 Follow up: Response: No adverse reaction rb1 Outcome: 17:09 ER care complete, transfer ordered by . 18:05 Transferred by ground EMS Transfer form completed. Note: Transferred to [place] [id number] 18:05 Condition: stable 18:05 Instructed on the need for transfer. rb1 18:05 Patient left the ED. rb1 Signatures: Fide Myers, MARCOS-C MARCOS-CkCandy Islas RN RN aa1 Betty Ortiz RN RN fc Kenji Lynn RN RN rb1 Raghavendra Mccoy Maria 5 Glen Titus RN RN jl7 Erika Hurtado Deanna 3 Keith Rojo MD MD gs Montes, Shakira 3 Taylor Rebolledo gm, Candace cm6 Shayy Myers kj1 Corrections: (The following items were deleted from the chart) 04/07 21:27 21:15 Safety checks: Items removed: yes. Door open/sign placed on door: yes. cm6 Family/friend present: no. Sitter present: Yes. cm6 22:22 21:28 Safety checks: Items removed: yes. Door open/sign placed on door: yes. oe Family/friend present: no. Sitter present: Yes. cm6 22:54 22:41 Safety checks: Items removed: oe oe 04/08 00:10 04/07 23:20 Safety checks: Items removed: yes. Door open/sign placed on door: yes. cm6 Family/friend present: no. Sitter present: Yes. cm6 04/08 03:23 03:22 BP 109 / 63; Pulse 82bpm; Resp 98bpm; Pulse Ox 16% RA; Temp 98.4F; Pain 0/10; aa1 aa1 06:49 06:41 Safety checks: Items removed: yes. Door open/sign placed on door: yes. cm6 Family/friend present: no. Sitter present: Yes. cm6 08:37 08:05 Reassessment: No changes from previously documented assessment. Patient and/or rb1 family updated on plan of care and expected duration. Pain level reassessed. Patient is alert, oriented x 3, equal unlabored respirations, skin warm/dry/pink. [facility] 09:53 04/07 16:28 Home Meds: lisinopril Oral; [place] [address] 04/08 09:53 04/07 16:28 Home Meds: Seroquel Oral; [place] [address] 04/08 09:53 04/07 16:28 Home Meds: Zoloft 100 mg Oral tab 2 tabs once daily; [place] [address] 04/08 15:47 13:40 BP 99 / 068; Pulse 80bpm; Resp 15bpm; Pulse Ox 99% RA; Temp 97.9F Oral; [place] [address] 16:01 15:55 BP 106 / 60; Pulse 71bpm; Resp 16bpm; Pulse Ox 100% RA; [place] [address] 18:15 18:14 Patient left the ED. [place] [id number]
--- NOTE | 2019-04-08 17:11 | EDPHYS ---
Physician Documentation [facility] Name: Sonny Spence Age: 43 yrs Sex: Female : 1975 Arrival Date: 04/07/2019 Time: 16:18 Bed 16 Private MD: ED Physician Fernando Woodall HPI: 04/07 16:27 This 43 yrs old Female presents to ER via EMS with complaints of Suicidal Ideation. kb 16:27 The patient presents to the emergency department with suicide ideation, and the patient kb has a plan, to cut oneself and bleed. Onset: The symptoms/episode began/occurred 1 week(s) ago. Past psychiatric history: Prior diagnosis: bipolar disorder, depression. Associated signs and symptoms: Pertinent positives; depression, suicide ideation. Severity of symptoms: At their worst the symptoms were moderate in the emergency department the symptoms are unchanged. The patient has experienced similar episodes in the past, a few times. The patient has not recently seen a physician. Pt reports she has had suicidal ideations for a week due to a recent breakup. States "I just don't want to live anymore." Pt plans to cut her throat with nail clippers or cut her vein with tweezers. Tried to do that today, but her counselor came in and stopped her. States she had similar thoughts about 3 weeks ago and was going to break some glass with an iron and cut her neck, but someone else stopped her that time. [facility], but was unable to fill the prescriptions from them. EMS reports pt was picked up from [facility]. . NECK FITTER: 16:28 LMP N/A - Hysterectomy jl7 Historical: - Allergies: 16:28 No Known Allergies; jl7 - Home Meds: 16:28 Depakote 500 mg Oral TbEC 1 tab 3 times per day [Active]; jl7 04/08 09:53 lisinopril 25 mg Oral 1 tab once daily [Active]; Seroquel 200 mg oral tab 1 tab three rb1 times a day [Active]; Zoloft 100 mg oral tab 2 tabs three times a day [Active]; - PMHx: 04/07 16:28 Depression; High Cholesterol; Hypertension; Bipolar disorder; jl7 - Immunization history:: Adult Immunizations unknown. - Social history:: Smoking status: Patient/guardian denies using tobacco, Patient uses ETOH and marijuana last used 03/08/19. - Ebola Screening: : No symptoms or risks identified at this time. ROS: 16:26 Constitutional: Negative for fever, chills, and weight loss, ENT: Negative for injury, kb pain, and discharge, Neck: Negative for injury, pain, and swelling, Cardiovascular: Negative for chest pain, palpitations, and edema, Respiratory: Negative for shortness of breath, cough, wheezing, and pleuritic chest pain, Abdomen/GI: Negative for abdominal pain, nausea, vomiting, diarrhea, and constipation, Back: Negative for injury and pain, MS/Extremity: Negative for injury and deformity, Skin: Negative for injury, rash, and discoloration, Neuro: Negative for headache, weakness, numbness, tingling, and seizure. 16:26 Psych: Positive for depression, suicidal ideation. Exam: 16:26 Constitutional: This is a well developed, well nourished patient who is awake, alert, kb and in no acute distress. Head/Face: Normocephalic, atraumatic. ENT: Nares patent. No nasal discharge, no septal abnormalities noted. Tympanic membranes are normal and external auditory canals are clear. Oropharynx with no redness, swelling, or masses, exudates, or evidence of obstruction, uvula midline. Mucous membranes moist. Neck: Trachea midline, no thyromegaly or masses palpated, and no cervical lymphadenopathy. Supple, full range of motion without nuchal rigidity, or vertebral point tenderness. No Meningismus. Chest/axilla: Normal chest wall appearance and motion. Nontender with no deformity. No lesions are appreciated. Cardiovascular: Regular rate and rhythm with a normal S1 and S2. No gallops, murmurs, or rubs. Normal PMI, no JVD. No pulse deficits. Respiratory: Lungs have equal breath sounds bilaterally, clear to auscultation and percussion. No rales, rhonchi or wheezes noted. No increased work of breathing, no retractions or nasal flaring. Abdomen/GI: Soft, non-tender, with normal bowel sounds. No distension or tympany. No guarding or rebound. No evidence of tenderness throughout. Back: No spinal tenderness. No costovertebral tenderness. Full range of motion. Skin: Warm, dry with normal turgor. Normal color with no rashes, no lesions, and no evidence of cellulitis. MS/ Extremity: Pulses equal, no cyanosis. Neurovascular intact. Full, normal range of motion. Neuro: Awake and alert, GCS 15, oriented to person, place, time, and situation. Cranial nerves II-XII grossly intact. Motor strength 5/5 in all extremities. Sensory grossly intact. Cerebellar exam normal. Normal gait. 16:26 Psych: Behavior/mood is cooperative, depressed, Affect is flat, Oriented to person, place, time, Patient having thoughts of suicide. Plan for suicide is cut throat Judgement / Insight is normal. Memory is normal. Delusions/hallucinations are not present. Vital Signs: 16:28 BP 108 / 80; Pulse 79; Resp 16 S; Temp 98.5(O); Pulse Ox 99% on R/A; Pain 0/10; jl7 21:42 BP 113 / 69; Pulse 71; Resp 17; Temp 98.5; Pulse Ox 97% ; Pain 0/10; cm6 10/10 02:28 BP 92 / 62; Pulse 70; Resp 17; Temp 98.1; Pulse Ox 98% ; Pain 0/10; cm6 03:22 BP 109 / 63; Pulse 82; Resp 18; Temp 98.4; Pulse Ox 98% on R/A; Pain 0/10; aa1 07:11 BP 93 / 59; Pulse 64; Resp 16; Temp 98.1; Pulse Ox 100% ; mh5 09:53 BP 99 / 65; Pulse 72; Resp 17; Pulse Ox 98% on R/A; rb1 09:53 BP 99 / 65; Pulse 80; Resp 16; Pulse Ox 100% on R/A; mh5 10:15 BP 104 / 62; Pulse 78; Resp 18; Pulse Ox 100% on R/A; kj1 13:40 BP 99 / 68; Pulse 80; Resp 15; Temp 97.9(O); Pulse Ox 99% on R/A; mh5 15:55 BP 106 / 60; Pulse 71; Resp 16; Temp 98.4(O); Pulse Ox 100% on R/A; mh5 18:03 BP 117 / 71; Pulse 76; Resp 16; Temp 98.6(O); Pulse Ox 98% on R/A; mh5 MDM: 04/07 16:20 Patient medically screened. kb 16:26 Data reviewed: vital signs, nurses notes. Data interpreted: Pulse oximetry: on room air kb is 100 %. Interpretation: normal. 20:04 ED course: Louis Huber Screener at bedside for evaluation. kb 20:28 ED course: [facility] recommends inpatient treatment. kb 04/08 02:28 Transition of care: After a detail discussion of the patient's case, care is kb transferred to Anant Berg MD. 04/07 16:20 Order name: Acetaminophen; Complete Time: 17:37 kb 04/07 16:20 Order name: Basic Metabolic Panel; Complete Time: 17:37 kb 04/07 16:20 Order name: CBC with Diff; Complete Time: 17:27 kb 04/07 16:20 Order name: ETOH Level; Complete Time: 17:36 kb 04/07 16:20 Order name: Hepatic Function; Complete Time: 17:37 kb 04/07 16:20 Order name: PT-INR; Complete Time: 17:41 kb 04/07 16:20 Order name: Ptt, Activated; Complete Time: 17:41 kb 04/07 16:20 Order name: Salicylate; Complete Time: 18:09 kb 04/07 16:20 Order name: Urine Drug Screen; Complete Time: 17:18 kb 04/07 16:59 Order name: Urine Dipstick--Ancillary (enter results); Complete Time: 17:27 gm 04/08 10:46 Order name: Depakote; Complete Time: 17:05 gs 04/08 14:50 Order name: BMP; Complete Time: 17:05 gm 04/07 16:20 Order name: EKG; Complete Time: 16:21 kb 04/07 16:20 Order name: EKG - Nurse/Tech; Complete Time: 16:59 kb 04/07 16:20 Order name: IV Saline Lock; Complete Time: 16:59 kb 04/07 16:20 Order name: Labs collected and sent; Complete Time: 16:59 kb 04/07 16:20 Order name: Urine Dipstick-Ancillary (obtain specimen); Complete Time: 16:59 kb 04/07 16:56 Order name: Diet Regular; Complete Time: 16:56 dh3 04/08 07:04 Order name: Diet Regular; Complete Time: 07:04 mh5 04/08 11:21 Order name: Diet Regular; Complete Time: 11:21 mh5 04/08 14:17 Order name: Diet Regular; Complete Time: 14:18 5 Administered Medications: 04/07 18:27 Drug: NS 0.9% 1000 ml Route: IV; Rate: 1000 ml; Site: left antecubital; jl7 04/08 04:27 Drug: Tylenol 1000 mg Route: PO; fc 11:00 Drug: hydrOXYzine 25 mg Route: PO; rb1 11:30 Follow up: Response: No adverse reaction; Marked relief of symptoms rb1 11:00 Drug: Depakote 500 mg Route: PO; rb1 11:30 Follow up: Response: No adverse reaction; Marked relief of symptoms rb1 11:27 Drug: Zoloft 100 mg Route: PO; rb1 12:00 Follow up: Response: No adverse reaction; Marked relief of symptoms rb1 11:28 Drug: SEROquel 200 mg Route: PO; rb1 12:00 Follow up: Response: No adverse reaction; Marked relief of symptoms rb1 16:50 Drug: hydrOXYzine 50 mg Route: PO; rb1 17:20 Follow up: Response: No adverse reaction rb1 Disposition: 04/09 06:53 Co-signature as Attending Physician, Fernando Woodall MD I agree with the assessment and [facility] plan of care. Disposition: 04/08/19 17:09 Transfer ordered to [facility]. Diagnosis is Suicide attempt. - Reason for transfer: Higher level of care. - Accepting physician is luan. - Condition is Stable. - Problem is an acute exacerbation. - Symptoms have improved. Signatures: Dispatcher [employer] Fide De Leon, JAVA ORACLE DEVELOPER-C JAVA ORACLE DEVELOPER-Fernando Archuleta MD MD cha Chretien, Felicia RN TOAN Rossi Hernandez RN TOAN rb1 Glen Titus RN RN jl7 Keith Rojo MD MD Corrections: (The following items were deleted from the chart) 04/07 16:59 16:20 Urine Test ordered. kb dh3 04/08 01:41 04/07 16:27 Pt reports she has had suicidal ideations for a week due to a recent kb breakup. States "I just don't want to live anymore." Pt plans to cut her throat with nail clippers or cut her vein with tweezers. States she had similar thoughts about 3 weeks ago and was going to break some glass with an iron and cut her neck. EMS reports pt was picked up from [facility]. . kb 04/08 09:53 04/07 16:28 Home Meds: lisinopril Oral; jl7 rb1 04/08 09:53 04/07 16:28 Home Meds: Seroquel Oral; jl7 rb1 04/08 09:53 04/07 16:28 Home Meds: Zoloft 100 mg Oral tab 2 tabs once daily; jl7 rb1 04/08 18:14 17:10 04/08/2019 17:09 Transfer ordered to [facility]. Diagnosis is Suicide rb1 attempt. Reason for transfer: Higher level of care. Accepting physician is luan. Condition is Stable. Problem is an acute exacerbation. Symptoms have improved. gs
[2019-04-08 19:18] VITALS: BP 117/71; TEMP 98.6; O2SAT 98
== END 2019-04-08 18:14 ==
LOC: ER 16:09
DX: R45.851 Suicidal ideations (principal); F32.9 Major depressive disorder, single episode, unspecified; I10 Essential (primary) hypertension; E78.00 Pure hypercholesterolemia, unspecified
CPT/HCPCS: 36415; 80048; 80076; 80164; 80307; 80320; 80329; 81003; 85025; 85610; 85730; 93005; 99285; J7030

== ENCOUNTER 2019-04-10 09:53 | Emergency (ER) | payer SELFPAY ==
[2019-04-10] MEDS ORDERED: NA CHLORIDE 0.9% 1,000 ML ONE (10:44)
--- NOTE | 2019-04-10 10:58 | RAD REPORT ---
EXAM DESCRIPTION: RAD - Chest Single View - 04/10/2019 10:53 am CLINICAL HISTORY: weakness Chest pain. COMPARISON: No comparisons FINDINGS: Portable technique limits examination quality. The lungs are grossly clear. The heart is normal in size. Old healed left posterior rib fractures. IMPRESSION: No acute intrathoracic process suspected.
[2019-04-10] MEDS ORDERED: NACHLORIDE 0.45% 1,000 ML with POTASSIUM CL 20 MEQ IV ONE ×2 (11:00)
[2019-04-10 11:41] LABS: Protime INR 1.05
[2019-04-10 11:43] LABS: Absolute Lymphocytes (CBC) 1.6 K/uL (0.7-4.9); Basophils % 0.5 % (0-1.3); Hematocrit 24.8 % (36.0-45.0); Lymphocytes % 36.6 % (15.3-44.8); MPV 8.2 fL (7.6-11.3); RBC Red Blood Cell Count 2.73 M/uL (3.86-4.86)
[2019-04-10 12:03] LABS: ALT/SGPT 25 U/L (12-78); AST/SGOT 19 U/L (15-37); Albumin 3.6 g/dL (3.4-5.0); Alkaline Phosphatase 41 U/L (45-117); BUN Blood Urea Nitrogen 16 mg/dL (7-18); Bicarbonate 26 mmol/L (21-32); Bilirubin Direct < 0.1 mg/dL (0-0.2); Bilirubin Total 0.2 mg/dL (0.2-1.0); Glucose Level 106 mg/dL (74-106); NT PRO-BNP 66 pg/mL (<125); Potassium 3.7 mmol/L (3.5-5.1); Protein, Total 6.6 g/dL (6.4-8.2); Sodium Level 138 mmol/L (136-145); Troponin (Emerg Dept Use Only) < 0.02 ng/mL (0.0-0.045)
--- NOTE | 2019-04-10 12:14 | EDPHYS ---
Physician Documentation [facility] Name: Sonny Spence Age: 43 yrs Sex: Female : 1975 Arrival Date: 04/10/2019 Time: 09:59 Bed 6 Private MD: ED Physician Jered Hernández HPI: 04/10 10:35 This 43 yrs old Female presents to ER via EMS with complaints of Blood kdr Pressure Problem. 10:35 The patient was sent from [facility] when it was noted that her BP was low and she kdr appeared to be missing three of her Lisinopril 20 mg tabs. The patient has been at [facility] until yesterday at noon when she signed out only to return later in the evening. She states that she went to a friends place and that later, she felt that she had made a mistake by leaving and so she went back to the facility that evening. This morning when the nurse arrived and took inventory, she noted the pill discrepancy and discovered that she was hypotensive. The patient denies SI/HI or ideation. States that she has thought about suicide friom time to time as recnet. 12:16 Onset: The symptoms/episode began/occurred this morning, at an unknown time. Severity kdr of symptoms: At their worst the symptoms were mild in the emergency department the symptoms are unchanged. The patient has not experienced similar symptoms in the past. The patient has not recently seen a physician. 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 - Social history:: Smoking status: Patient/guardian denies using tobacco. - Ebola Screening: : No symptoms or risks identified at this time. ROS: 12:16 Constitutional: Negative for fever, chills, and weight loss, Eyes: Negative for injury, kdr pain, redness, and discharge, Neck: Negative for injury, pain, and swelling, Cardiovascular: Negative for chest pain, palpitations, and edema, Respiratory: Negative for shortness of breath, cough, wheezing, and pleuritic chest pain, Abdomen/GI: Negative for abdominal pain, nausea, vomiting, diarrhea, and constipation, Back: Negative for injury and pain, : Negative for injury, bleeding, discharge, and swelling, MS/Extremity: Negative for injury and deformity, Skin: Negative for injury, rash, and discoloration, Neuro: Negative for headache, weakness, numbness, tingling, and seizure activity. Psych: Negative for depression, anxiety, suicide ideation, homicidal ideation, and hallucinations, Allergy/Immunology: Negative for hives, rash, and allergies, Endocrine: Negative for neck swelling, polydipsia, polyuria, polyphagia, and marked weight changes, Hematologic/Lymphatic: Negative for swollen nodes, abnormal bleeding, and unusual bruising. Exam: 12:16 Constitutional: This is a well developed, well nourished patient who is awake, alert, kdr and in no acute distress. Head/Face: Normocephalic, atraumatic. Eyes: Pupils equal round and reactive to light, extra-ocular motions intact. Lids and lashes normal. Conjunctiva and sclera are non-icteric and not injected. Cornea within normal limits. Periorbital areas with no swelling, redness, or edema. Neck: Trachea midline, no thyromegaly or masses palpated, and no cervical lymphadenopathy. Supple, full range of motion without nuchal rigidity, or vertebral point tenderness. No Meningismus. Chest/axilla: Normal chest wall appearance and motion. Nontender with no deformity. No lesions are appreciated. Cardiovascular: Regular rate and rhythm with a normal S1 and S2. No gallops, murmurs, or rubs. Normal PMI, no JVD. No pulse deficits. Respiratory: Lungs have equal breath sounds bilaterally, clear to auscultation and percussion. No rales, rhonchi or wheezes noted. No increased work of breathing, no retractions or nasal flaring. Abdomen/GI: Soft, non-tender, with normal bowel sounds. No distension or tympany. No guarding or rebound. No evidence of tenderness throughout. Back: No spinal tenderness. No costovertebral tenderness. Full range of motion. Skin: Warm, dry with normal turgor. Normal color with no rashes, no lesions, and no evidence of cellulitis. MS/ Extremity: Pulses equal, no cyanosis. Neurovascular intact. Full, normal range of motion. Neuro: Awake and alert, GCS 15, oriented to person, place, time, and situation. Cranial nerves II-XII grossly intact. Motor strength 5/5 in all extremities. Sensory grossly intact. Cerebellar exam normal. Normal gait. Psych: Awake, alert, with orientation to person, place and time. Behavior, mood, and affect are within normal limits. Vital Signs: 10:06 BP 79 / 52; Pulse 81; Resp 16 S; Temp 98.1(O); Pulse Ox 100% on R/A; Weight 68.04 kg jl7 (R); Height 5 ft. 3 in. (160.02 cm) (R); Pain 9/10; 11:04 BP 90 / 46; Pulse 69; Resp 11; Pulse Ox 100% ; bp 12:34 BP 108 / 65; Pulse 72; Resp 12; Temp 98; Pulse Ox 100% ; bp 10:06 Body Mass Index 26.57 (68.04 kg, 160.02 cm) jl7 MDM: 12:14 Patient medically screened. kdr 12:16 Data reviewed: vital signs, nurses notes, lab test result(s). Counseling: I had a kdr detailed discussion with the patient and/or guardian regarding: the historical points, exam findings, and any diagnostic results supporting the discharge/admit diagnosis, lab results, the need for outpatient follow up. Special discussion: I discussed with the patient/guardian in detail that at this point there is no indication for admission to the hospital. It is understood, however, that if the symptoms persist or worsen the patient needs to return immediately for re-evaluation. ED course: The patient continues to be stable in the ED. She had no c/o at the time of discharge and had ambulated to the bathroom without problem. 04/10 10:33 Order name: Basic Metabolic Panel kdr 04/10 10:33 Order name: CBC with Diff; Complete Time: 11:55 kdr 04/10 10:33 Order name: LFT's kdr 04/10 10:33 Order name: Magnesium kdr 04/10 10:33 Order name: NT PRO-BNP kdr 04/10 10:33 Order name: PT-INR; Complete Time: 11:55 kdr 04/10 10:33 Order name: Troponin (emerg Dept Use Only) kdr 04/10 10:33 Order name: XRAY Chest (1 view); Complete Time: 11:55 kdr 04/10 10:33 Order name: Acetaminophen kdr 04/10 10:33 Order name: ETOH Level kdr 04/10 10:33 Order name: Ptt, Activated; Complete Time: 11:55 kdr 04/10 10:33 Order name: Salicylate kdr 04/10 10:33 Order name: Urine Drug Screen kdr 04/10 12:24 Order name: Urine Dipstick--Ancillary (enter results) eb 04/10 10:33 Order name: Cardiac monitoring; Complete Time: 10:42 kdr 04/10 10:33 Order name: EKG - Nurse/Tech; Complete Time: 10:42 kdr 04/10 10:33 Order name: IV Saline Lock; Complete Time: 11:01 kdr 04/10 10:33 Order name: Labs collected and sent; Complete Time: 11:01 kdr 04/10 10:33 Order name: O2 Per Protocol; Complete Time: 10:42 kdr 04/10 10:33 Order name: O2 Sat Monitoring; Complete Time: 10:42 kdr 04/10 10:33 Order name: Urine Dipstick-Ancillary (obtain specimen); Complete Time: 12:29 kdr Administered Medications: 10:59 Drug: NS 0.9% 1000 ml Route: IV; Rate: 1 bolus; Site: right forearm; bp 12:28 Follow up: IV Status: Completed infusion; IV Intake: 1000ml bp 12:12 Not Given (Physician Discretion): NS 0.45 % with KCl 20 mEq/L 1000 ml IV at 125 ml/hr jl7 once Disposition: 04/10/19 12:14 Discharged to Home. Impression: Hypotension, Hypotension, unspecified. - Condition is Stable. - Discharge Instructions: Hypotension, Cily-rx-Oaph. - Medication Reconciliation Form, Thank You Letter form. - Follow up: Private Physician; When: 2 - 3 days; Reason: If symptoms return, Further diagnostic work-up, Recheck today's complaints, Continuance of care, Re-evaluation by your physician. - Problem is new. - Symptoms have improved. Signatures: Dispatcher [employer] EDMS Jered Hernández MD MD kdr Glen Titus RN RN jl7 Ben Ching RN RN bp Corrections: (The following items were deleted from the chart) 12:47 12:14 04/10/2019 12:14 Discharged to Home. Impression: Hypotension; Hypotension, bp unspecified. Condition is Stable. Forms are Medication Reconciliation Form, Thank You Letter, Antibiotic Education, Prescription Opioid Use. Follow up: Private Physician; When: 2 - 3 days; Reason: If symptoms return, Further diagnostic work-up, Recheck today's complaints, Continuance of care, Re-evaluation by your physician. Problem is new. Symptoms have improved. kdr
--- NOTE | 2019-04-10 12:14 | ER ---
Nurse's Notes [facility] Name: Sonny Spence Age: 43 yrs Sex: Female : 1975 Arrival Date: 04/10/2019 Time: 09:59 Bed 6 Private MD: Diagnosis: Hypotension;Hypotension, unspecified Presentation: 04/10 10:00 Presenting complaint: EMS states: From [facility], Nurse administered medications this jl7 morning, pt's BP 78/54 Nurse reported unsure if pt doubled up on her meds. Pt report N/V and lightheadedness since last night, HANDY "all over" rated 9/10. Transition of care: patient was received from another setting of care (rehabilitation facility). Onset of symptoms was April 10, 2019. Risk Assessment: Do you want to hurt yourself or someone else? Patient reports no desire to harm self or others. Initial Sepsis Screen: Does the patient meet any 2 criteria? Systolic BP < 90 mmHg. Mean Arterial Pressure (MAP) < 65. Yes Does the patient have a suspected source of infection? No. Patient's initial sepsis screen is negative. Care prior to arrival: Medication(s) given: Normal saline infusion, 500 mL, IV initiated. 20 GA, in the left antecubital area, Glucose check: 96. 10:00 Method Of Arrival: EMS: [facility] jl7 10:00 Acuity: LILY 2 jl7 Triage Assessment: 10:06 General: Appears in no apparent distress. uncomfortable, Behavior is calm, cooperative, jl7 appropriate for age. Pain: Complains of pain in HANDY Pain currently is 9 out of 10 on a pain scale. Pain began 1 day ago. Is continuous. EENT: No signs and/or symptoms were reported regarding the EENT system. Neuro: Level of Consciousness is awake, alert, obeys commands, Oriented to person, place, time, situation, Speech is normal. Cardiovascular: Patient's skin is warm and dry. Respiratory: Airway is patent Respiratory effort is even, unlabored, Respiratory pattern is regular, symmetrical. GI: Reports diarrhea, nausea, vomiting. : No signs and/or symptoms were reported regarding the genitourinary system. Derm: Skin is pink, warm \\T\\ dry. Musculoskeletal: No signs and/or symptoms reported regarding the musculoskeletal system. 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 - Social history:: Smoking status: Patient/guardian denies using tobacco. - Ebola Screening: : No symptoms or risks identified at this time. Screenin:25 Abuse screen: Denies threats or abuse. Denies injuries from another. Nutritional jl7 screening: No deficits noted. Tuberculosis screening: No symptoms or risk factors identified. Fall Risk IV access (20 points). Total Cruz Fall Scale indicates No Risk (0-24 pts). Assessment: 10:22 Reassessment: Spoke with Nicolette, nurse [facility], states that pt left AMA iw from facility yesterday around lunch time, pt left with all her home meds, pt then came back to facility around 10 pm and was administered her regular home medications by a non-medical staff member, Nicolette received pt this morning and assessed a low BP reading, also noted that pt BP meds were 'off by three' pt takes lisinopril-hctz 20-25. 10:26 Reassessment: Phone number for Nicolette is . iw 12:34 Reassessment: PT D/C HOME AMBULATORY, DX WITH HYPOTENSION. bp 12:47 Reassessment: TRANSPORT EN ROUTE. bp Vital Signs: 10:06 BP 79 / 52; Pulse 81; Resp 16 S; Temp 98.1(O); Pulse Ox 100% on R/A; Weight 68.04 kg jl7 (R); Height 5 ft. 3 in. (160.02 cm) (R); Pain 9/10; 11:04 BP 90 / 46; Pulse 69; Resp 11; Pulse Ox 100% ; bp 12:34 BP 108 / 65; Pulse 72; Resp 12; Temp 98; Pulse Ox 100% ; bp 10:06 Body Mass Index 26.57 (68.04 kg, 160.02 cm) jl7 ED Course: 09:59 Patient arrived in ED. jl7 10:01 Jered Hernández MD is Attending Physician. kdr 10:03 Triage completed. jl7 10:06 Arm band placed on right wrist. jl7 10:25 Patient has correct armband on for positive identification. Placed in gown. Bed in low jl7 position. Call light in reach. Side rails up X 1. engine monitor on. Pulse ox on. NIBP on. Warm blanket given. 10:25 Maintain EMS IV. Dressing intact. Good blood return noted. Site clean \\T\\ dry. Gauge \\T\\ jl 7 site: 20 right AC. 10:41 Ben Ching, RN is Primary Nurse. bp 10:54 XRAY Chest (1 view) In Process Unspecified. EDMS 11:00 Inserted saline lock: 22 gauge in right forearm, using aseptic technique. Blood bp collected. 12:34 No provider procedures requiring assistance completed. IV discontinued, intact, bp bleeding controlled, No redness/swelling at site. Pressure dressing applied. Administered Medications: 10:59 Drug: NS 0.9% 1000 ml Route: IV; Rate: 1 bolus; Site: right forearm; bp 12:28 Follow up: IV Status: Completed infusion; IV Intake: 1000ml bp 12:12 Not Given (Physician Discretion): NS 0.45 % with KCl 20 mEq/L 1000 ml IV at 125 ml/hr jl7 once Intake: 12:28 IV: 1000ml; Total: 1000ml. bp Outcome: 12:14 Discharge ordered by . kdr 12:34 Discharged to home ambulatory. bp 12:34 Condition: stable 12:34 Discharge instructions given to patient, Instructed on discharge instructions, follow up and referral plans. Demonstrated understanding of instructions, follow-up care. 12:47 Patient left the ED. bp Signatures: Dispatcher [employer] EDMS Jered Hernández MD MD kdr Williams, Irene, RN RN iw Glen Titus RN RN jl7 Ben Ching, TOAN RN bp
[2019-04-10 12:28] LABS: Urine Blood NEGATIVE (NEG); Urine Glucose NEGATIVE (NEG); Urine Protein NEGATIVE (NEG); Urine Specific Gravity 1.015 (1.005-1.030); Urine pH 7.5 (5.0-7.0)
[2019-04-10 12:44] LABS: Barbiturates NEGATIVE (NEGATIVE); Benzodiazepines NEGATIVE (NEGATIVE); Cocaine NEGATIVE (NEGATIVE); METHAMPHETAM NEGATIVE (NEGATIVE); Methadone NEGATIVE (NEGATIVE); Opiates NEGATIVE (NEGATIVE); Phencyclidine NEGATIVE (NEGATIVE); THC Cannibis NEGATIVE (NEGATIVE)
[2019-04-10 12:52] VITALS: O2SAT 100
[2019-04-10 12:55] VITALS: BP 108/65; TEMP 98
== END 2019-04-10 12:47 | disposition home or self-care (01) ==
LOC: ER 09:53
DX: I95.9 Hypotension, unspecified (principal); I10 Essential (primary) hypertension; E78.00 Pure hypercholesterolemia, unspecified; F31.9 Bipolar disorder, unspecified
CPT/HCPCS: 36415; 71045; 80048; 80076; 80307; 80320; 80329; 81003; 83735; 83880; 84484; 85025; 85610; 85730; 96360; 99284; J7030